=== PATIENT | female | born 1940 | race Asian ===

== ENCOUNTER 2017-11-06 14:26 | Inpatient (IN) | payer MEDICARE, MEDICAID ==
[~2017-11-06] VITALS: Ht 152.4 cm; Wt 47.4 kg
[~2017-11-06 14:26] MED LIST: ACET650T2 PO; AMLO-94 PO; CARV25TA2 PO; CHOL10002 PO; DONE-46 PO; GLIP10TA11 PO; LEVO250T58 PO; LINA5TAB4 PO; OMEP20CA10 PO
[2017-11-06] MEDS ORDERED: normal saline 1000ML IV soln IVB ONE (14:40)
[2017-11-06 15:32] LABS: HEMATOCRIT 28.8 % (35.0-45.0); MEAN CORPUSCULAR HEMOGLOBIN 21.5 PG (27.0-31.0); MEAN CORPUSCULAR HGB CONC 31.3 % (33.0-36.5); MEAN CORPUSCULAR VOLUME 68.9 FL (78-98); MEAN PLATELET VOLUME 8.9 FL (7.4-10.4); PLATELET COUNT 176 X10'3 (140-440); RED BLOOD COUNT 4.19 X10'6 (4.20-5.60); RED CELL DISTRIBUTION WIDTH 15.4 % (11.5-14.5); WHITE BLOOD COUNT 4.3 X10'3 (4.5-11.0)
[2017-11-06 15:46] LABS: ALANINE AMINOTRANSFERASE 12 U/L (12-78); ALBUMIN/GLOBULIN RATIO 0.8 (1.1-1.5); ALKALINE PHOSPHATASE 89 IU/L (46-116); ANION GAP 7 (8-16); ASPARTATE AMINO TRANSFERASE 20 U/L (10-37); BILIRUBIN,TOTAL 0.2 MG/DL (0.1-1.0); BLOOD UREA NITROGEN 30 MG/DL (7-18); BUN/CREATININE RATIO 13.1 (6.6-38.0); CALCIUM 8.1 MG/DL (8.5-10.1); CHLORIDE 113 MMOL/L (99-107); CREATININE 2.29 MG/DL (0.40-0.90); GLUCOSE 105 MG/DL (70-104); MAGNESIUM 1.8 MG/DL (1.5-2.4); SODIUM 138 MMOL/L (135-145); TOTAL CARBON DIOXIDE 17.9 MMOL/L (24-32); TOTAL PROTEIN 6.6 G/DL (6.4-8.2); eGFR 21 ML/MIN
[2017-11-06 15:48] LABS: POTASSIUM 6.2 MMOL/L (3.5-5.1)
[2017-11-06] MEDS ORDERED: sodium polystyrene sulfonate 15gm/60ml oral suspension PO ONE (15:50)
[2017-11-06 16:06] LABS: TOTAL CELLS COUNTED 100
[2017-11-06 16:07] LABS: ANISOCYTOSIS 1+; MICROCYTOSIS 2+; PLATELET ESTIMATE NORMAL
[2017-11-06 16:08] LABS: HYPOCHROMASIA 1+; SCHISTOCYTES 1+
[2017-11-06] MEDS ORDERED: glucagon, human recombinant 4 MG in normal saline 100ml IV soln 100 ML IV ONE ×2 (16:30)
[2017-11-06] MEDS ORDERED: calcium gluconate inj. 1 GM in normal saline 100ml IV soln 90 ML IV ONE (16:30)
[2017-11-06] MEDS ORDERED: ondansetron/PF 4mg/2ml inj IV ONE (16:30)
[2017-11-06] MEDS ORDERED: albuterol 2.5 MG/3 ML nebule CONTNEB PRN (16:30)
[2017-11-06] MEDS ORDERED: magnesium hydroxide 30ml (MOM) UD suspension PO PRN (17:50)
[2017-11-06] MEDS ORDERED: mag hydrox/Alum hydrox/simeth 30ml oral suspension PO PRN (17:50)
[2017-11-06] MEDS ORDERED: acetaminophen 325mg tablet PO PRN (17:50)
[2017-11-06] MEDS ORDERED: ondansetron/PF 4mg/2ml inj IV PRN (17:50)
[2017-11-06] MEDS: normal saline 1000ml 1,000 ML IV SCH (17:54)
[2017-11-06] MEDS ORDERED: SPIR50TA5 PO (18:04)
[2017-11-06] MEDS ORDERED: BENA40TA73 PO (18:04)
[2017-11-06] MEDS ORDERED: DILT120C51 PO (18:05)
[2017-11-06 18:38] LABS: POTASSIUM 6.1 MMOL/L (3.5-5.1)
[2017-11-06 20:00] VITALS: BP 149/63
[2017-11-06 23:00] VITALS: BP 144/46
[2017-11-07 03:00] VITALS: BP 130/43
[2017-11-07 03:02] LABS: BASOPHILS % (AUTO) 0.2 % (0-1); EOSINOPHILS # (AUTO) 0.1 X10'3 (0-0.9); EOSINOPHILS % (AUTO) 2.9 % (0-6); HEMATOCRIT 25.4 % (35.0-45.0); LYMPHOCYTES # (AUTO) 1.1 X10'3 (1.1-4.8); MEAN CORPUSCULAR HEMOGLOBIN 21.3 PG (27.0-31.0); MEAN CORPUSCULAR HGB CONC 31.3 % (33.0-36.5); MEAN CORPUSCULAR VOLUME 67.9 FL (78-98); MEAN PLATELET VOLUME 8.4 FL (7.4-10.4); MONOCYTES # (AUTO) 0.3 X10'3 (0-0.9); MONOCYTES % (AUTO) 7.6 % (2-12); NEUTROPHILS # (AUTO) 2.4 X10'3 (1.8-7.7); NEUTROPHILS % (AUTO) 61.3 % (42-75); PLATELET COUNT 123 X10'3 (140-440); RED BLOOD COUNT 3.75 X10'6 (4.20-5.60); RED CELL DISTRIBUTION WIDTH 16.7 % (11.5-14.5)
[2017-11-07 03:19] LABS: ALBUMIN 2.6 G/DL (3.4-5.0); ANION GAP 7 (8-16); BLOOD UREA NITROGEN 29 MG/DL (7-18); BUN/CREATININE RATIO 15.3 (6.6-38.0); CHLORIDE 116 MMOL/L (99-107); GLUCOSE 135 MG/DL (70-104); POTASSIUM 5.9 MMOL/L (3.5-5.1); SODIUM 140 MMOL/L (135-145); TOTAL CARBON DIOXIDE 16.7 MMOL/L (24-32); eGFR 26 ML/MIN
[2017-11-07 03:35] LABS: ANISOCYTOSIS 1+; ELLIPTOCYTES 2+; HYPOCHROMASIA 1+; MICROCYTOSIS 2+; PLATELET ESTIMATE NORMAL; SCHISTOCYTES 1+; SPHEROCYTES 1+; TARGET CELLS 1+
[2017-11-07] MEDS: normal saline 1000ml 1,000 ML IV SCH (04:48)
[2017-11-07 06:00] VITALS: BP 131/38
[2017-11-07] MEDS ORDERED: sodium polystyrene sulfonate 15gm/60ml oral suspension PO ONE (08:25)
[2017-11-07 11:00] VITALS: BP 128/44
[2017-11-07 15:00] VITALS: BP 146/46
[2017-11-07] MEDS: sodium bicarbonate (8.4%) inj. 100 MEQ in dextrose 5%-water 1,000 ML IV SCH (15:00)
[2017-11-07 15:20] LABS: HEMOGLOBIN A1C 5.9 % (4.5-6.2)
[2017-11-07 19:00] VITALS: BP 184/52
[2017-11-07] MEDS: hydrALAZINE 20mg/ml inj. IV PRN (19:48)
[2017-11-07 23:00] VITALS: BP 142/53
[2017-11-08 03:00] VITALS: BP 138/57
[2017-11-08] MEDS: sodium bicarbonate (8.4%) inj. 100 MEQ in dextrose 5%-water 1,000 ML IV SCH (03:26)
[2017-11-08 06:48] LABS: HEMOGLOBIN 8.7 g/dl (12.0-16.0); MEAN CORPUSCULAR VOLUME 67.7 FL (78-98)
[2017-11-08 06:58] LABS: ALBUMIN 2.6 G/DL (3.4-5.0); ANION GAP 7 (8-16); BLOOD UREA NITROGEN 21 MG/DL (7-18); BUN/CREATININE RATIO 14.5 (6.6-38.0); CALCIUM 7.9 MG/DL (8.5-10.1); CHLORIDE 113 MMOL/L (99-107); CREATININE 1.45 MG/DL (0.40-0.90); GLUCOSE 109 MG/DL (70-104); POTASSIUM 3.8 MMOL/L (3.5-5.1); SODIUM 143 MMOL/L (135-145); TOTAL CARBON DIOXIDE 23.1 MMOL/L (24-32); eGFR 35 ML/MIN
[2017-11-08 07:00] VITALS: BP 195/71
[2017-11-08 07:03] LABS: HEMATOCRIT 27.9 % (35.0-45.0); MEAN CORPUSCULAR HGB CONC 31.1 % (33.0-36.5); MEAN PLATELET VOLUME 8.7 FL (7.4-10.4); PLATELET COUNT 126 X10'3 (140-440); RED BLOOD COUNT 4.12 X10'6 (4.20-5.60); RED CELL DISTRIBUTION WIDTH 16.7 % (11.5-14.5); WHITE BLOOD COUNT 3.9 X10'3 (4.5-11.0)
[2017-11-08 07:25] LABS: EOSINOPHILS % (MANUAL) 5 % (0-6); LYMPHOCYTES % (MANUAL) 36 % (21-51); MONOCYTES % (MANUAL) 9 % (2-12); NEUTROPHILS % (MANUAL) 50 % (42-75); TOTAL CELLS COUNTED 100
[2017-11-08 07:26] LABS: ANISOCYTOSIS 1+; ELLIPTOCYTES 1+; HYPOCHROMASIA 1+; MICROCYTOSIS 2+; PLATELET ESTIMATE NORMAL; TARGET CELLS 1+
[2017-11-08] MEDS ORDERED: pantoprazole 40mg Tablet.DR PO SCH (07:30)
[2017-11-08] MEDS ORDERED: amLODIPine 5mg tablet PO SCH (08:00)
[2017-11-08] MEDS ORDERED: diltiazem CD 120mg capsule (once-daily) PO SCH (08:00)
[2017-11-08] MEDS ORDERED: vitamin D (cholecalciferol) 1,000 unit tablet PO SCH (08:00)
[2017-11-08] MEDS ORDERED: lisinopril 20mg tablet PO SCH (08:00)
[2017-11-08] MEDS: hydrALAZINE 20mg/ml inj. IV PRN (10:12)
== END 2017-11-08 13:30 | disposition home or self-care (01) | DRG 640 ==
LOC: ER 14:26 → ED HOLD 17:49 → PCU 3S 20:00
PROVIDERS: ADMIT Family Medicine; ATTEND Family Medicine
DX: E87.5 Hyperkalemia (principal); N17.0 Acute kidney failure with tubular necrosis; E11.65 Type 2 diabetes mellitus with hyperglycemia; E87.2 Acidosis; R00.1 Bradycardia, unspecified; I48.91 Unspecified atrial fibrillation; F03.90 Unspecified dementia, unspecified severity, without behavioral disturbance, psychotic disturbance, mood disturbance, and anxiety; D63.8 Anemia in other chronic diseases classified elsewhere; E11.22 Type 2 diabetes mellitus with diabetic chronic kidney disease; I12.9 Hypertensive chronic kidney disease with stage 1 through stage 4 chronic kidney disease, or unspecified chronic kidney disease; N18.3 Chronic kidney disease, stage 3 (moderate); Z79.899 Other long term (current) drug therapy
CPT/HCPCS: 36415; 71045; 80048; 80053; 83036; 83735; 83880; 84132; 84484; 85025; 85610; 87070; 93005; 93306; 94640; 94644; 94760; 96361; 96365; 96368; 96375; 99291; J0360; J0610; J1610; J2405; J7030